=== PATIENT | male | born 1960 | race Caucasian/White ===

== ENCOUNTER 2018-06-20 10:12 | Emergency (ER) | payer BC ==
[~2018-06-20] VITALS: Ht 162.6 cm; Wt 88.5 kg
[2018-06-20 10:21] VITALS: Ht 162.6 cm; Wt 88.5 kg
[2018-06-20 12:45] VITALS: BP 134/79
== END 2018-06-20 12:45 | disposition home or self-care (01) ==
LOC: ED 10:12
DX: S52.501A Unspecified fracture of the lower end of right radius, initial encounter for closed fracture (principal); S52.601A Unspecified fracture of lower end of right ulna, initial encounter for closed fracture; I10 Essential (primary) hypertension; E11.9 Type 2 diabetes mellitus without complications; E78.00 Pure hypercholesterolemia, unspecified; W10.9XXA Fall (on) (from) unspecified stairs and steps, initial encounter; Y93.89 Activity, other specified; Y92.89 Other specified places as the place of occurrence of the external cause; Y99.8 Other external cause status